=== PATIENT | male | born 2000 | race Caucasian/White ===

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

== ENCOUNTER 2019-03-06 21:05 | Emergency (ER) | payer SELFPAY ==
[2019-03-06] MEDS ORDERED: traMADol 50 MG Tab PO ONE (21:06)
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
[2019-03-06] MEDS ORDERED: Diphtheria,Pertussis(Acell),Tetanus Vaccine 0.5 ML Syringe IM ONE (21:55)
[2019-03-06 22:21] LABS: CHLORIDE,CL 103 mEq/L (98-106); SODIUM,NA 140 mEq/L (136-145)
[2019-03-06] MEDS ORDERED: Take Home: traMADol 50 MG, 4 Tab Pack PO ONE (22:41)
== END 2019-03-06 22:50 | disposition home or self-care (01) ==
LOC: CC.ED 21:05
DX: S20.419A Abrasion of unspecified back wall of thorax, initial encounter (principal); S10.91XA Abrasion of unspecified part of neck, initial encounter; S40.211A Abrasion of right shoulder, initial encounter; R55 Syncope and collapse; T14.8XXA Other injury of unspecified body region, initial encounter; Z23 Encounter for immunization; V80.018A Animal-rider injured by fall from or being thrown from other animal in noncollision accident, initial encounter
CPT/HCPCS: 36415; 70450; 71045; 72125; 72170; 73030-RT; 80053; 81001; 85025; 90471; 90715; 99285-25; A9270-GY